=== PATIENT | female | born 1965 | race Caucasian/White ===

== ENCOUNTER 2017-11-08 06:40 | Day surgery (SDC) | payer OTHER ==
[~2017-11-08] VITALS: Ht 154.9 cm; Wt 55.7 kg
[~2017-11-08 06:40] MED LIST: IMITREX50 MG PO; NOHOMEMEDS
[2017-11-08 07:21] VITALS: BP 146/78
[2017-11-08 09:58] VITALS: BP 147/70
[2017-11-08 10:53] VITALS: BP 159/79
== END 2017-11-08 10:58 | disposition home or self-care (01) ==
LOC: SDC 06:40
DX: N72 Inflammatory disease of cervix uteri (principal); N84.1 Polyp of cervix uteri; N92.4 Excessive bleeding in the premenopausal period; N88.2 Stricture and stenosis of cervix uteri; Z80.3 Family history of malignant neoplasm of breast
CPT/HCPCS: 88305; J0131; J0690; J1100; J1885; J2250; J2405; J7643